=== PATIENT | male | born 1940 | race Caucasian/White ===

== ENCOUNTER 2020-07-27 05:10 | Inpatient (IN) ==
--- NOTE | 2020-07-02 15:05 | PAT Medication Instructions ---
Medication Instructions Date of Service July 02, 2020 Home Medications acetaminophen [Tylenol Extra Strength] 1,000 mg PO Q6H PRN allopurinol 300 mg PO QAM amlodipine 5 mg PO QAM aspirin [Aspir-81] 81 mg PO QAM atorvastatin 40 mg PO QAM irbesartan-hydrochlorothiazide 1 tab PO QAM levothyroxine 150 mcg PO QAM meloxicam 15 mg PO QAM metoprolol tartrate 25 mg PO QAM ASK your surgeon for instructions meloxicam 15 mg PO QAM DO NOT take the morning of surgery irbesartan-hydrochlorothiazide 1 tab PO QAM Take morning of surgery With a small sip of water, OTHERWISE NOTHING TO EAT OR DRINK AFTER MIDNIGHT: acetaminophen [Tylenol Extra Strength] 1,000 mg PO Q6H PRN (okay to take up to 4 hours prior to surgery if needed) allopurinol 300 mg PO QAM amlodipine 5 mg PO QAM aspirin [Aspir-81] 81 mg PO QAM atorvastatin 40 mg PO QAM levothyroxine 150 mcg PO QAM metoprolol tartrate 25 mg PO QAM Take evening before surgery acetaminophen [Tylenol Extra Strength] 1,000 mg PO Q6H PRN (if needed) Other Notes If you have any questions please call us at [phone] or [phone] or [phone] or [phone]
--- NOTE | 2020-07-06 12:55 | Anesthesiology Consultation ---
Date of Service July 06, 2020 Assessment & Plan (1) Encounter for pre-operative examination: COVID Status: As of 07/06 assessment, patient denies travel to endemic area, known exposure/sick contacts, or symptoms of COVID19. Patient instructed that they and their household members must follow strict social distancing guidelines, wear a mask in public and avoid travel for 14 days prior to surgery. Patient is traveling to [place] this weekend to see his son and new grandchild, will be returning 07/12. As [place] is not on the list of quarantine states, and he will be returning back to the area > 5 days prior to COVID test, OK to proceed as planned. Patient advised to check the [facility] website to see if [place] was added to the list prior to leaving. Preoperative COVID19 testing to be completed prior to surgery per surgeon's arrangements. Patient made aware to self-isolate as much as possible between COVID testing and surgery. Chart Review Chart Review: Acceptable Risk for Surgery (pending surgeon-ordered pcp and cardio clearances) and Patient seen in Pre Admission Testing Teaching & Discussion Instructed NPO after midnight before surgery, except medications with 15 cc of water. Medication instructions provided according to the PAT guidelines. History Surgery Operation Date: 07/27/20 10:30 Proposed Procedures p Left Total Hip Arthroplasty Anterior - Frantz Gunter DO Height/Weight Height: 5 ft 3.5 in Weight: 94.347 kg Allergies Allergy/AdvReac Type Severity Reaction Status Date / Time rosuvastatin Allergy Mild MUSCLE Verified 07/01/20 09:53 ACHES simvastatin AdvReac Mild MUSCLE Verified 07/01/20 09:53 ACHES Medications Home Medications Medication Instructions Recorded Confirmed Last Taken acetaminophen [Tylenol Extra 1,000 mg PO Q6H PRN 07/01/20 07/01/20 Unknown Strength] allopurinol 300 mg PO QAM 07/01/20 07/01/20 Unknown amlodipine 5 mg PO QAM 07/01/20 07/01/20 Unknown aspirin [Aspir-81] 81 mg PO QAM 07/01/20 07/01/20 Unknown atorvastatin 40 mg PO QAM 07/01/20 07/01/20 Unknown irbesartan-hydrochlorothiazide 1 tab PO QAM 07/01/20 07/01/20 Unknown levothyroxine 150 mcg PO QAM 07/01/20 07/01/20 Unknown meloxicam 15 mg PO QAM 07/01/20 07/01/20 Unknown metoprolol tartrate 25 mg PO QAM 07/01/20 07/01/20 Unknown Past Medical History Medical History Afib Post-op after CABG. CAD (coronary artery disease) S/P CABG x 1 SHANKAR-LAD 04/02/17. PCI to distal RCA with NARCISO 05/10/17. Cancer COLON, S/P HEMICOLECTOMY. Chronic back pain LUMBAR Enlarged prostate GERD (gastroesophageal reflux disease) UNDER CONTROL NOW Hyperlipidemia Hypertension Hypothyroidism JULIANNA (obstructive sleep apnea) Per cardiology 01/2020, sleep study in november 2017 showed sleep apnea, recommended CPAP, but patient never followed up. Osteoarthritis Exercise / Class Metabolic Activity II 4-5 Yardwork/Stairs/Walk up hill (Denies CP or SOB with 1 FOS, still golfs 18 holes (riding in cart)) Past Family History Family History (Updated 07/01/20 @ 10:07 by Rozina Whitaker RN) Mother Family history of diabetes mellitus Past Surgical History Surgical History Fusion of spine X 2-LUMBAR AREA History of bowel resection REMOVAL 80% COLON AND CHEMO-2002 History of [facility] cataract surgery R/L History of colonoscopy MULTIPLE History of coronary artery bypass graft 1 VESSEL-3-4 YRS AGO-[facility] History of esophagogastroduodenoscopy (EGD) History of open reduction and internal fixation (ORIF) procedure FINGER RIGHT HAND History of total knee replacement LEFT Past Anesthesia History No Hx of Anesthesia Complications and No Family Hx of Anesthesia Complications History of PONV No Hx of PONV and No Hx of Motion Sickness Social History Smoking Status: Never smoker Do You Dip or Chew Tobacco: No (QUIT) Hx Alcohol Use: No Hx Substance Use: No substance use type: other Substance Use Type Other:: CBD OIL DROPLETS SUBLINGUALLY-1 X A DAY Review of Systems Pt denies any recent chest pain, shortness of breath, palpitations, cough, fever, URI, or uncontrolled acid reflux. Physical Exam Vital Signs BP: 152/76 P: 87bpm SPO2: 96% RA T: 97.6 F R: 16 ENMT Mouth: + dentures and + chipped teeth (on bottom few remaining teeth are broken off at root); no loose teeth Thyromental Distance: > or= 3.5 Finger Breadths Mallampati Class: I Neck normal visual inspection; neck extension not limited Respiratory normal respiratory effort Auscultation: lungs clear to auscultation bilaterally Cardiovascular Rate/Rhythm: regular rate and regular rhythm Heart Sounds: no murmur Vessels: no carotid bruit Extremities: no edema Testing Laboratory Results 07/06/20 13:25 07/06/20 13:25 PT 11.5 Seconds (9.0-12.0) 07/06/20 13:25 INR 1.1 (0.9-1.1) 07/06/20 13:25 APTT 31.2 Seconds (21.0-31.0) H 07/06/20 13:25 Hemoglobin A1c 6.2 % (4.5-5.6) H 07/06/20 13:25 Urine Color Dark Yellow 07/06/20 13:25 Urine Appearance Clear (Clear) 07/06/20 13:25 Urine pH 5.0 (4.5-7.5) 07/06/20 13:25 Ur Specific [place] 1.027 (1.000-1.030) 07/06/20 13:25 Urine Protein Negative (Negative) 07/06/20 13:25 Urine Glucose (UA) Negative (Negative) 07/06/20 13:25 Urine Ketones Trace (Negative) H 07/06/20 13:25 Urine Nitrite Negative (Negative) 07/06/20 13:25 Ur Leukocyte Esterase 1+ (Negative) H 07/06/20 13:25 Urine WBC (Auto) >30 /hpf (0-5) H 07/06/20 13:25 Urine RBC (Auto) 0-4 /hpf (0-4) 07/06/20 13:25 U Hyaline Cast (Auto) 1-5 /lpf (0-5) 07/06/20 13:25 U Epithel Cells (Auto) 20-30 /lpf (0-5) H 07/06/20 13:25 Urine Bacteria (Auto) Negative (Negative) 07/06/20 13:25 Blood Type O Positive 07/06/20 13:25 Antibody Screen NEGATIVE 07/06/20 13:25 Creatinine elevated, unknown if baseline or PARAM. Pt will be seeing PCP for clearance, will forward labs for their review. Electrocardiogram Date: 01/20/20 Findings: + SB @ (59bpm) Chest X-Ray Date: 07/06/20 Findings: + NAD Echocardiogram Date: 02/03/20 EF: 60% Grade 1 diastolic dysfunction. Mild concentric hypertrophy. Normal right ventricular size and function. Moderately dilated left atrium. Normal right atrium. Mild aortic regurgitation with trileaflet aortic valve. Mild mitral regurgitation. Normal PA pressure. Physiologic pulmonic regurgitation. The ascending aorta is enlarged. Stress Test Date: 02/03/20 Mild motion artifact. Increased liver uptake. Good quality study. Gated MPI wall motion suggest mild inferior hypokinesis with normal EF. There is a medium sized, mild intensity, fixed MPI defect of the inferior, inferoapical and inferolateral myocardium. This suggests infarct without significant ischemia. Moderately abnormal, low risk study. Findings similar to prior study dated 02/09/2017. Cardiac Catheterization Date: 05/10/17 Widely patent SHANKAR to the LAD. Successful PCI and stenting in the distal RCA with a 2.5 x 22 mm drug-eluting stent postdilated with a 2.75x15 noncompliant balloon.
--- NOTE | 2020-07-06 13:52 | XRay Report ---
XR chest Pre-admission PA/Lat CLINICAL HISTORY: Chest radiograph August 26, 2014. COMPARISON STUDY: No previous studies for comparison. FINDINGS: Lung volumes are normal. Lungs are clear. There is no pneumothorax or pleural effusion. Mil d cardiomegaly is unchanged. Mediastinal contours are normal. There is no evidence for pulmonary raul a. Spine fusion hardware is partially imaged. There is severe osteoarthritis of both glenohumeral [place] nts. IMPRESSION: No acute cardiopulmonary findings. ACT 112: Negative or not required by law. Electronically signed by: Aleksey Feldman M.D. 07/06/2020 1:50 PM
[2020-07-06 13:53] LABS: Basophils # (auto) 0.03 K/uL (0-0.2); Basophils % (auto) 0.4 %; Eosinophils # (auto) 0.09 K/uL (0-0.5); Eosinophils % (auto) 1.1 %; Hematocrit (blood only) 40.4 % (42-52); Hemoglobin 13.8 g/dL (14.0-18.0); Immature Granulocytes # (auto) 0.01 K/uL (0.00-0.02); Immature Granulocytes % (auto) 0.1 %; Mean Corpuscular Hemoglobin 29.1 pg (25-34); Mean Corpuscular Hgb Conc 34.2 g/dL (32-36); Mean Corpuscular Volume 85.2 fL (80-100); Monocytes # (auto) 0.71 K/uL (0.11-0.59); Monocytes % (auto) 8.9 %; Neutrophils # (auto) 5.94 K/uL (1.4-6.5); Neutrophils % (auto) 74.5 %; Platelet Count 200 K/uL (130-400); RDW Coefficient of Variation 14.2 % (11.5-14.5); RDW Standard Deviation 43.9 fL (36.4-46.3); Red Blood Count 4.74 M/uL (4.7-6.1); White Blood Count 7.98 K/uL (4.8-10.8)
[2020-07-06 14:03] LABS: Estimated Average Glucose 131 mg/dl; Hemoglobin A1C 6.2 % (4.5-5.6)
[2020-07-06 14:13] LABS: Albumin Level 3.8 gm/dl (3.4-5.0); BUN Creatinine Ratio 14.2 (10-20); Calcium 9.4 mg/dl (8.5-10.1); Creatinine Clr Calc Pharmacy 37.3 ml/min; Est GFR (African American) 45.8; Est GFR (Non-African American) 39.5; Potassium 4.1 mmol/L (3.5-5.1)
[2020-07-06 14:15] LABS: INR 1.1 (0.9-1.1); Partial Thromboplastin Ratio 1.1; Partial Thromboplastin Time 31.2 Seconds (21.0-31.0); Prothrombin Time 11.5 Seconds (9.0-12.0)
[2020-07-06 14:30] LABS: Appearance Urine Clear (Clear); Bacteria Urine Automated Negative (Negative); Bilirubin Urine Negative (Negative); Blood Urine Negative (Negative); Color Urine Dark Yellow; Epithelial Cell Urine Auto 20-30 /lpf (0-5); Glucose Urine UA Negative (Negative); Ketones Urine Trace (Negative); Leukocyte Esterase Urine 1+ (Negative); Nitrite Urine Negative (Negative); Protein Urine Negative (Negative); RBC Urine Automated 0-4 /hpf (0-4); Specific Gravity Urine 1.027 (1.000-1.030); Urobilinogen Urine Negative (Negative); WBC Urine Automated >30 /hpf (0-5)
--- NOTE | 2020-07-24 10:19 | History & Physical Report ---
Date of Service July 27, 2020 Assessment & Plan (1) Degenerative joint disease of left hip: I have indicated the patient for left anterior total hip replacement. The risks, benefits and complications of surgery were explained to the patient which include but not limited to infection, acute blood loss, DVT/PE, injury to nerves, vessels, bone, soft tissue, arthrofibrosis, chronic pain, failure of the prosthesis, hip dislocation, leg length discrepancy, need for additional surgery, cardiac and pulmonary events and . The patient wished to proceed with surgery and informed consent was obtained at this time. We will plan for 81mg ASA BID post-operatively for DVT prophylaxis. Upon discharge the patient will be discharged home with home health services. Appropriate clearances by PCP and cardiology were obtained. Patient is asymptomatic for UTI, PCP felt this contaminant. History of Present Illness Chief Complaint: Left hip pain/DJD Primary Care Provider: Jignesh Arevalo MD The patient is a 80 year old male who presents with complaints of severe left hip pain and DJD. The patient has failed outpatient conservative treatments to this point which included NSAIDs, IA corticosteroid injection, home exercise/walking program. The patient's pain and limited function have progressed to the point where they severely hinder their activities of daily living and they no longer tolerate exercise programs. They are requesting to proceed with total hip replacement surgery. Allergies Allergy/AdvReac Type Severity Reaction Status Date / Time rosuvastatin Allergy Mild MUSCLE Verified 07/27/20 05:44 ACHES simvastatin AdvReac Mild MUSCLE Verified 07/27/20 05:44 ACHES Home Medications Home Medications Medication Instructions Recorded Confirmed Type acetaminophen [Tylenol Extra 1,000 mg PO Q6H PRN 07/01/20 07/27/20 History Strength] allopurinol 300 mg PO QAM 07/01/20 07/27/20 History amlodipine 5 mg PO QAM 07/01/20 07/27/20 History aspirin [Aspir-81] 81 mg PO QAM 07/01/20 07/27/20 History atorvastatin 40 mg PO QAM 07/01/20 07/27/20 History irbesartan-hydrochlorothiazide 1 tab PO QAM 07/01/20 07/27/20 History levothyroxine 150 mcg PO QAM 07/01/20 07/27/20 History meloxicam 15 mg PO QAM 07/01/20 07/27/20 History metoprolol tartrate 25 mg PO QAM 07/01/20 07/27/20 History oxycodone-acetaminophen [Percocet] 1 tab PO Q6H PRN 07/27/20 07/27/20 History Past Med/Surg History Medical History Afib Post-op after CABG. CAD (coronary artery disease) S/P CABG x 1 SHANKAR-LAD 04/02/17. PCI to distal RCA with NARCISO 05/10/17. Cancer COLON, S/P HEMICOLECTOMY. Chronic back pain LUMBAR Enlarged prostate GERD (gastroesophageal reflux disease) UNDER CONTROL NOW Hyperlipidemia Hypertension Hypothyroidism JULIANNA (obstructive sleep apnea) Per cardiology 01/2020, sleep study in november 2017 showed sleep apnea, recommended CPAP, but patient never followed up. Osteoarthritis Surgical History Fusion of spine X 2-LUMBAR AREA History of bowel resection REMOVAL 80% COLON AND CHEMO-2002 History of cardiac cath 1 STENT 3-4 YRS AGO-[facility] History of cataract surgery R/L History of colonoscopy MULTIPLE History of coronary artery bypass graft 1 VESSEL-3-4 YRS AGO-[facility] History of esophagogastroduodenoscopy (EGD) History of open reduction and internal fixation (ORIF) procedure FINGER RIGHT HAND History of total knee replacement LEFT Family History Mother Family history of diabetes mellitus Social History Smoking Status: Never smoker Second Hand Exposure: Yes (IN HIS 20-30'S); Do You Dip or Chew Tobacco: No (QUIT); Hx Alcohol Use: No Hx Substance Use: No Preferred Language: Kosovan Communication Ability: Effective Turntable Man Required: No Beliefs That Will Affect Care: None Current Living Situation: Spouse Other Information That Helps Us Care for You: No Feels Safe at Home: Yes Safety Concerns: Feels Safe At This Time Assistive Devices: Denture - Upper Review of Systems Review of Systems: All systems reviewed & are unremarkable except as noted in HPI & below Constitutional: as per Subjective / HPI Physical Exam Physical Exam: LLE NVSI +EHL/FHL/TA/GS SILT grossly, +2 DP pulse, compartments soft NT, limited painful ROM of the hip, antalgic gait. Constitutional: WD/WN, vitals as above Eyes: PERRL, conjunctivae normal, anicteric sclerae ENMT: external ear and nose normal, oropharynx normal Neck: trachea midline, no thyromegaly Respiratory: normal respiratory effort, lungs clear to auscultation Cardiovascular: RRR, no murmur, no edema Gastrointestinal (Abdomen): normal bowel sounds, soft, nontender, no hepatosplenomegaly Musculoskeletal: no cyanosis or clubbing, extremities motor strength 5/5 Skin: no rashes, warm and dry Neurologic: patellar DTR's 2+ bilat, sensation intact Psychiatric: A+Ox3, euthymic affect Lymphatic: no cervical or axillary lymphadenopathy Results & Data Results & Data ([facility]) Diagnostic Findings Multiple views of the hip demonstrates severe DJD with complete loss of the joint space. +osteophytes, +sclerosis, +subchondral cysts. Pre Admission Testing Addendum Laboratory Results 07/06/20 13:25 07/06/20 13:25 PT 11.5 Seconds (9.0-12.0) 07/06/20 13:25 INR 1.1 (0.9-1.1) 07/06/20 13:25 APTT 31.2 Seconds (21.0-31.0) H 07/06/20 13:25 Hemoglobin A1c 6.2 % (4.5-5.6) H 07/06/20 13:25 Urine Color Dark Yellow 07/06/20 13:25 Urine Appearance Clear (Clear) 07/06/20 13:25 Urine pH 5.0 (4.5-7.5) 07/06/20 13:25 Ur Specific [place] 1.027 (1.000-1.030) 07/06/20 13:25 Urine Protein Negative (Negative) 07/06/20 13:25 Urine Glucose (UA) Negative (Negative) 07/06/20 13:25 Urine Ketones Trace (Negative) H 07/06/20 13:25 Urine Nitrite Negative (Negative) 07/06/20 13:25 Ur Leukocyte Esterase 1+ (Negative) H 07/06/20 13:25 Urine WBC (Auto) >30 /hpf (0-5) H 10/20/20 13:25 Urine RBC (Auto) 0-4 /hpf (0-4) 07/06/20 13:25 U Hyaline Cast (Auto) 1-5 /lpf (0-5) 07/06/20 13:25 U Epithel Cells (Auto) 20-30 /lpf (0-5) H 07/06/20 13:25 Urine Bacteria (Auto) Negative (Negative) 07/06/20 13:25 Blood Type O Positive 07/06/20 13:25 Antibody Screen NEGATIVE 07/06/20 13:25 07/06/20 13:25 Urine Culture - Final Urine,Clean Catch Escherichia coli Angelica albicans/dubliniensis
[2020-07-27] MEDS ORDERED: CeleBREX 200 MG CAP ONE (05:22)
[2020-07-27] MEDS ORDERED: TRANEXAMIC ACID 1,000 MG **IV Pre-op IV SCH (06:00)
[2020-07-27] MEDS ORDERED: GABAPENTIN 300 MG CAP PO SCH (06:00)
[2020-07-27] MEDS ORDERED: ROPIVACAINE 0.5% HCL/PF 150 MG, BUPIVACAINE 0.5% MPF 30 ML, EPINEPHrine 30MG/30ML (OR U... INFIL SCH (06:00)
[2020-07-27] MEDS ORDERED: TRANEXAMIC ACID 1,000 MG **IV Intra-op IV SCH (06:00)
[2020-07-27] MEDS ORDERED: CeleBREX 200 MG CAP PO SCH (06:00)
[2020-07-27] MEDS ORDERED: dexAMETHasone 4 MG TAB PO SCH (06:00)
[2020-07-27] MEDS ORDERED: ceFAZolin 2000MG 2,000 MG/15 ML SYR IV SCH (06:00)
[2020-07-27] MEDS ORDERED: LR 500ML BOLUS, THEN 15ML/HR IV SCH (06:00)
[2020-07-27] MEDS ORDERED: FAMOTIDINE 20 MG TAB PO SCH (06:00)
[2020-07-27] MEDS ORDERED: ACETAMINOPHEN 500 MG TAB PO SCH (06:00)
[2020-07-27] MEDS ORDERED: METOCLOPRAMIDE HCL 10 MG TABLET PO SCH (06:00)
[2020-07-27] MEDS ORDERED: BUPIVACAINE 0.5 % 5 MG/1 ML PF 10ML VIAL ONE (06:17)
--- NOTE | 2020-07-27 06:56 | History & Physical Bridge Note ---
Date of Service July 27, 2020 History & Physical Bridge Note I have examined the patient, reviewed the History & Physical and in the interval since the performance of the History & Physical I have noted the following changes of clinical significance: no changes noted
[2020-07-27] MEDS ORDERED: ePHEDrine sulfate 50 MG/ML AMP IV PRN ×2 (06:57→07:20)
[2020-07-27] MEDS ORDERED: ATROPINE SULFATE 0.1 MG/ML 10ML SYR IV PRN ×2 (06:57→07:20)
[2020-07-27] MEDS ORDERED: ONDANSETRON INJ 2 MG/ML 2 ML VIAL IV PRN ×3 (06:57→10:22)
[2020-07-27] MEDS ORDERED: fentaNYL citrate 100 MCG/2 ML VIAL IV PRN ×2 (06:57→07:20)
[2020-07-27] MEDS ORDERED: PROPOFOL IV EMULSION 10 MG/ML 20 ML VIAL IV ONE ×2 (06:59→11:11)
[2020-07-27] MEDS ORDERED: fentaNYL citrate 100 MCG/2 ML VIAL ONE (06:59)
[2020-07-27] MEDS ORDERED: MIDAZOLAM HCL 1 MG/ML 2ML VIAL ONE (07:01)
[2020-07-27] MEDS ORDERED: BACITRACIN INJ 50,000 UNIT VIAL ONE (07:04)
[2020-07-27] MEDS ORDERED: ORTHO JOINT ANESTHETIC ONE (07:04)
--- NOTE | 2020-07-27 08:42 | Anesthesiology Consultation ---
Date of Service July 27, 2020 Assessment & Plan (1) Encounter for pre-operative examination: Chart Review Chart Review: Acceptable Risk for Surgery and Patient NOT seen in Pre Admission Testing Consults Requested none ASA ASA3 Proposed Anesthesia Anesthesia Type: MAC Spinal Risk / Benefits Reviewed With: PT / POA / Parent / Guardian, Accepts Plan and Informed Consent Obtained History Surgery Operation Date: 07/27/20 07:15 Proposed Procedures p Left Total Hip Arthroplasty Anterior - Frantz Gunter DO Height/Weight Height: 5 ft 3.5 in Weight: 94.2 kg Allergies Allergy/AdvReac Type Severity Reaction Status Date / Time rosuvastatin Allergy Mild MUSCLE Verified 07/27/20 05:44 ACHES simvastatin AdvReac Mild MUSCLE Verified 07/27/20 05:44 ACHES Medications Home Medications Medication Instructions Recorded Confirmed Last Taken acetaminophen [Tylenol Extra 1,000 mg PO Q6H PRN 07/01/20 07/27/20 Unknown Strength] allopurinol 300 mg PO QAM 07/01/20 07/27/20 07/26/20 09:00 amlodipine 5 mg PO QAM 07/01/20 07/27/20 07/27/20 03:45 aspirin [Aspir-81] 81 mg PO QAM 07/01/20 07/27/20 07/20/20 atorvastatin 40 mg PO QAM 07/01/20 07/27/20 07/26/20 09:00 irbesartan-hydrochlorothiazide 1 tab PO QAM 07/01/20 07/27/20 07/27/20 03:45 levothyroxine 150 mcg PO QAM 07/01/20 07/27/20 07/27/20 03:45 meloxicam 15 mg PO QAM 07/01/20 07/27/20 07/20/20 metoprolol tartrate 25 mg PO QAM 07/01/20 07/27/20 07/27/20 03:45 oxycodone-acetaminophen [Percocet] 1 tab PO Q6H PRN 07/27/20 07/27/20 07/26/20 21:00 Active Medications Generic Name Dose Route Start Last Admin Trade Name Freq PRN Reason Stop Dose Admin Acetaminophen 1,000 mg 07/27/20 06:00 07/27/20 06:18 Acetaminophen 500 Mg Tab PO 11/10/20 18:00 1,000 mg PREOP SANA Administration Dexamethasone 8 mg 07/27/20 06:00 07/27/20 06:19 Dexamethasone 4 Mg Tab PO 07/27/20 18:00 8 mg PREOP SANA Administration Famotidine 20 mg 07/27/20 06:00 07/27/20 06:18 Famotidine 20 Mg Tab PO 07/27/20 18:00 20 mg PREOP SANA Administration Gabapentin 300 mg 07/27/20 06:00 07/27/20 06:19 Gabapentin 300 Mg Cap PO 07/27/20 18:00 300 mg PREOP SANA Administration Lactated Ringer's 1,000 mls @ 15 mls/hr 07/27/20 06:00 07/27/20 07:24 Lr IV 07/27/20 18:00 Infused .Q24H SANA Infusion Cefazolin Sodium 2,000 mg in 15 mls @ 3.75 mls/min 07/27/20 06:00 07/27/20 07:24 Ancef 2000mg IV 07/27/20 18:00 3.75 mls/min PREOP SANA Administration Protocol Tranexamic Acid 1,000 mg in 100 mls @ 600 mls/hr 07/27/20 06:00 07/27/20 07:24 Tranexamic Acid / 0.7% Nacl IV 07/27/20 18:00 Infused TODAY@0600 SANA Infusion Metoclopramide HCl 10 mg 07/27/20 06:00 07/27/20 06:18 Metoclopramide Hcl 10 Mg Tablet PO 07/27/20 18:00 10 mg PREOP SANA Administration NPO Date Last Intake of Fluids: 07/26/20 Time Last Intake of Fluids: 21:00 Last Intake of Fluids Comment: sips of water this AM with meds Date Last Intake of Solids: 07/26/20 Time Last Intake of Solids: 18:00 Past Medical History Medical History Afib Post-op after CABG. CAD (coronary artery disease) S/P CABG x 1 SHANKAR-LAD 04/02/17. PCI to distal RCA with NARCISO 05/10/17. Cancer COLON, S/P HEMICOLECTOMY. Chronic back pain LUMBAR Enlarged prostate GERD (gastroesophageal reflux disease) UNDER CONTROL NOW Hyperlipidemia Hypertension Hypothyroidism JULIANNA (obstructive sleep apnea) Per cardiology 01/2020, sleep study in november 2017 showed sleep apnea, recommended CPAP, but patient never followed up. Osteoarthritis Exercise / Class Metabolic Activity II 4-5 Yardwork/Stairs/Walk up hill Past Family History Family History Mother Family history of diabetes mellitus Past Surgical History Surgical History Fusion of spine X 2-LUMBAR AREA History of bowel resection REMOVAL 80% COLON AND CHEMO-2002 History of cardiac cath 1 STENT 3-4 YRS AGO-[employer] [place] History of cataract surgery R/L History of colonoscopy MULTIPLE History of coronary artery bypass graft 1 VESSEL-3-4 YRS AGO-[facility] History of esophagogastroduodenoscopy (EGD) History of open reduction and internal fixation (ORIF) procedure FINGER RIGHT HAND History of total knee replacement LEFT Past Anesthesia History No Hx of Anesthesia Complications and No Family Hx of Anesthesia Complications History of PONV No Hx of PONV and No Hx of Motion Sickness Social History Smoking Status: Never smoker Do You Dip or Chew Tobacco: No (QUIT) Hx Alcohol Use: No Hx Substance Use: No substance use type: other Substance Use Type Other:: CBD OIL DROPLETS SUBLINGUALLY-1 X A DAY Physical Exam Vital Signs Last Vital Signs Temp 36.7 C 07/27/20 06:41 Pulse 65 07/27/20 06:41 Resp 20 07/27/20 06:41 BP 140/68 07/27/20 06:41 Pulse Ox 93 07/27/20 06:41 ENMT Mouth: no dentition abnormality Thyromental Distance: > or= 3.5 Finger Breadths Mallampati Class: II Neck normal visual inspection Respiratory normal respiratory effort Auscultation: lungs clear to auscultation bilaterally Cardiovascular Rate/Rhythm: regular rate and regular rhythm Musculoskeletal Spine: + scoliosis (large surgical thoracolumbar surgical scar) Neurologic moves all extremities (no focal neurologic deficits) Psychiatric Orientation: alert Testing Laboratory Results 07/06/20 13:25 07/06/20 13:25 PT 11.5 Seconds (9.0-12.0) 07/06/20 13:25 INR 1.1 (0.9-1.1) 07/06/20 13:25 APTT 31.2 Seconds (21.0-31.0) H 07/06/20 13:25 Hemoglobin A1c 6.2 % (4.5-5.6) H 07/06/20 13:25 Urine Color Dark Yellow 07/06/20 13:25 Urine Appearance Clear (Clear) 07/06/20 13:25 Urine pH 5.0 (4.5-7.5) 07/06/20 13:25 Ur Specific [place] 1.027 (1.000-1.030) 07/06/20 13:25 Urine Protein Negative (Negative) 07/06/20 13:25 Urine Glucose (UA) Negative (Negative) 07/06/20 13:25 Urine Ketones Trace (Negative) H 07/06/20 13:25 Urine Nitrite Negative (Negative) 07/06/20 13:25 Ur Leukocyte Esterase 1+ (Negative) H 07/06/20 13:25 Urine WBC (Auto) >30 /hpf (0-5) H 07/06/20 13:25 Urine RBC (Auto) 0-4 /hpf (0-4) 07/06/20 13:25 U Hyaline Cast (Auto) 1-5 /lpf (0-5) 07/06/20 13:25 U Epithel Cells (Auto) 20-30 /lpf (0-5) H 07/06/20 13:25 Urine Bacteria (Auto) Negative (Negative) 07/06/20 13:25 Blood Type O Positive 07/06/20 13:25 Antibody Screen NEGATIVE 07/06/20 13:25 07/06/20 13:25 Urine Culture - Final Urine,Clean Catch Escherichia coli Angelica albicans/dubliniensis Electrocardiogram Date: 01/20/20 Findings: + SB @ (59bpm) Chest X-Ray Date: 07/06/20 Findings: + NAD Echocardiogram Date: 02/03/20 EF: 60% Grade 1 diastolic dysfunction. Mild concentric hypertrophy. Normal right ventricular size and function. Moderately dilated left atrium. Normal right atrium. Mild aortic regurgitation with trileaflet aortic valve. Mild mitral regurgitation. Normal PA pressure. Physiologic pulmonic regurgitation. The ascending aorta is enlarged. Stress Test Date: 02/03/20 Mild motion artifact. Increased liver uptake. Good quality study. Gated MPI wall motion suggest mild inferior hypokinesis with normal EF. There is a medium sized, mild intensity, fixed MPI defect of the inferior, inferoapical and inferolateral myocardium. This suggests infarct without significant ischemia. Moderately abnormal, low risk study. Findings similar to prior study dated 02/09/2017. Cardiac Catheterization Date: 05/10/17 Widely patent SHANKAR to the LAD. Successful PCI and stenting in the distal RCA with a 2.5 x 22 mm drug-eluting stent postdilated with a 2.75x15 noncompliant balloon.
--- NOTE | 2020-07-27 09:22 | Post Operative Brief Note ---
Immediate Post Op Note v1 Date of Surgery July 27, 2020 Pre & Post Diagnosis Operation Date: 07/27/20 07:15 Pre-Op Diagnosis: Osteoarthritis, Left Hip Post-Op Diagnosis: Osteoarthritis, Left Hip I identified the patient and participated in the time-out.: Yes Procedure Operation Date: 07/27/20 07:15 Actual Procedures p Left Total Hip Arthroplasty Anterior, Uncemented(Left) - Frantz Gunter DO Surgeon Frantz Gunter DO Debt Counselor Deejay Chaudhry Estimated Blood Loss 185 Findings Consistent with Post-Op Diagnosis Fluids 1500 cc LR Specimens femoral head Anesthesia Type Spinal MAC Complications none Disposition Disposition: Recovery Room Overlapping Procedure I was present for: the critical portions of procedure. I was immediately available: during the entire case. Back up surgeon: was not required during procedure.
--- NOTE | 2020-07-27 09:24 | Operative Report ---
Post Operative Report Pre & Post Diagnosis Operation Date: 07/27/20 07:15 Pre-Op Diagnosis: Osteoarthritis, Left Hip Post-Op Diagnosis: Osteoarthritis, Left Hip I identified the patient and participated in the time-out.: Yes Procedure Operation Date: 07/27/20 07:15 Actual Procedures p Left Total Hip Arthroplasty Anterior, Uncemented(Left) - Frantz Gunter DO Surgeon Frantz Gunter DO Clinical Trial Head Deejay Chaudhry Estimated Blood Loss 185 Findings Consistent with Post-Op Diagnosis Fluids 1500 cc LR Specimens Femoral head Anesthesia Type Spinal MAC Complications none Disposition Disposition: Recovery Room Indications The patient is a 80-year-old male who presents with severe progressive left hip DJD/AVN who has failed outpatient conservative treatments. I indicated the patient for a anterior total hip replacement and the risks and benefits were explained in detail which include but not limited to infection, bleeding, blood clot, damage to surrounding bone, nerves, vessels, soft tissue, hip dislocation, failure of the prosthesis, leg length discrepancy, need for additional surgery and . The patient agreed to proceed with replacement of the hip and informed consent was obtained. Appropriate clearances were obtained. Description of Procedure COMPONENTS USED: [employer] hip system: Acetabulum size 54, femur size 8 high offset, femoral head 36-3, liner 54x36, acetabular screw 25 mm x 1. DESCRIPTION OF PROCEDURE: Following satisfactory spinal anesthesia, the patient was placed supine on the OR table. The right leg was placed in the well leg gonzáles and the left leg in the traction device. The left leg was prepared with ChloraPrep and draped sterilely. A surgical timeout was performed, patient identified and site laura verified. Appropriate antibiotics were given. A standard anterior approach in the interval between the sartorius and tensor muscles was performed. Dissection was carried down through subcutaneous tissues. Electrocautery was utilized for hemostasis. Circumflex femoral vessels were identified, tied and ligated. The anterior capsular fat pad was removed and the capsulotomy was performed revealing the arthritic femoral neck and head. A femoral neck cut was made with reciprocating saw and the bone fragments removed. The acetabular self-retraining retractor was placed. Acetabular reaming was completed under fluoroscopic guidance, a 54 shell was impacted into an anatomic position and secured with a dome screw. Local anesthetic was placed and following irrigation, the polyethylene liner was placed. The femur was placed into position of external rotation, extension and adduction. Femoral canal was prepared up to the size 8 high offset. Trial r eduction with a 36-3 neck length head showed good soft tissue tension, leg lengths restored, and good fit and fill of the proximal canal using fluoroscopic landmarks. The hip was dislocated. The trial component was removed. The final implant was placed. The hip was irrigated with sterile saline solution and reduced. A Betadine soak was performed. After 3 minutes, the hip was once more irrigated with copious sterile saline solution with bacitracin. Marta-incisional soft tissue was injected utilizing [place] [employer] which includes a combination of Ropivicaine 0.5% 150mg, Bupivicaine 0.5%/Epinephrine 1:200,000 30ml, Toradol 30mg, Dexamethasone 4mg, Ketamine 10mg, Clonidine 100mcg and NSS 30ml solution. The capsule was then closed with 1-0 Vicryl interrupted figure of eight sutures. The fascia was closed with a running suture of #1 Vicryl, the subcutaneous tissues with 2-0 Vicryl and the skin with a running subcuticular stitch of 3-0 V-Loc. Dermabond prineo and a dry dressing were applied. The patient tolerated the procedure well and was transported to PACU in stable condition. Due to the complex nature of the procedure, the entire surgery was performed with the operational assistance of Deejay chaudhry PA-C. The department assistant, under direct supervision, was involved in the actual performance of all aspects of the surgical procedure including patient positioning, hemostasis, tissue retraction, instrument management and wound closure. I attest to the content of the Intraoperative Record and any orders documented therein. Any exceptions are noted below.
--- NOTE | 2020-07-27 10:15 | XRay Report ---
XR hip 1V LT w pelvis HISTORY: 80 years-old Male IN PACU - A/P PELVIS and LATERAL HIP left hip total joint arthroplasty COMPARISON: Fluoroscopic images of the left hip of same day TECHNIQUE: AP view the pelvis with crosstable lateral view of the left hip FINDINGS: Moderate to severe right hip osteoarthritis. Left hip total joint arthroplasty demonstrates satisfact ory alignment. No acute fracture or retained foreign body. Expected postsurgical soft tissue swelling and deep tissue air lateral to the left hip. Posterior interbody roverto and screw fusion hardware of th e lumbosacral junction. IMPRESSION: Left hip total joint arthroplasty with expected postoperative changes. ACT 112: Negative or not required by law. The above report was generated using voice recognition software. It may contain grammatical, syntax o r spelling errors. Electronically signed by: Gianfranco Robles M.D. 07/27/2020 10:14 AM
[2020-07-27] MEDS ORDERED: diphenhydrAMINE Capsule 25 MG CAP PO PRN (10:22)
[2020-07-27] MEDS ORDERED: METOCLOPRAMIDE HCL INJ 5 MG/ML 2 ML VIAL IV PRN (10:22)
[2020-07-27] MEDS ORDERED: NALOXONE HCL 0.4 MG/1 ML VIAL/CARP IV PRN (10:22)
[2020-07-27] MEDS ORDERED: HYDROmorphone INJ 0.5 MG/0.5 ML SYR IV PRN (10:22)
[2020-07-27] MEDS ORDERED: oxyCODONE HCL IR 5 MG TAB (IMMEDIATE RELEASE) PO PRN (10:22)
[2020-07-27] MEDS ORDERED: bisacodyL 10 MG SUPP PR PRN (10:22)
[2020-07-27] MEDS ORDERED: MAGNESIUM HYDROXIDE SUSP 30 ML UDC PO PRN (10:22)
[2020-07-27] MEDS: SODIUM CHLORIDE 0.9% 1000ML 1,000 ML IV SCH ×2 (10:39→21:46)
--- NOTE | 2020-07-27 10:41 | Fluoroscopy Report ---
FL hip LT 1V HISTORY: 80 years-old Male LEFT ANTERIOR HIP left hip total joint arthroplasty COMPARISON: Pelvis and left hip radiographs of same day TECHNIQUE: 2 spot fluoroscopic images of the left hip were obtained utilizing 40.7 seconds fluoroscop y time FINDINGS: Left hip total joint arthroplasty appears in satisfactory positioning. No acute fracture or unexpecte d retained opaque foreign body. Expected postsurgical soft tissue swelling and deep tissue air. IMPRESSION: Fluoroscopic assistance as above. Please see operative report for further details. ACT 112: Negative or not required by law. The above report was generated using voice recognition software. It may contain grammatical, syntax o r spelling errors. Electronically signed by: Gianfranco Robles M.D. 07/27/2020 10:40 AM
--- NOTE | 2020-07-27 10:49 | Anesthesiology Progress Note ---
Date of Service July 27, 2020 Anesthesia Post Procedure Vital Signs Vital Signs: Temp Pulse Pulse Resp BP Pulse Ox 07/27/20 10:39 77 16 153/75 H 92 07/27/20 10:00 36.5 C 83 14 134/71 94 07/27/20 09:50 78 14 123/61 94 07/27/20 09:42 36.0 C L 84 14 129/75 94 07/27/20 06:41 36.7 C 65 20 140/68 93 07/27/20 05:49 36.8 C 80 16 118/70 95 Pain Intensity Left Hip: Pain Intensity: 2 Transfer of Care Handoff Completed per policy Notes Mental Status: alert / awake / arousable Patient Amnestic to Procedure: Yes Nausea / Vomiting: adequately controlled Pain: adequately controlled Airway Patency, RR, SpO2: stable & adequate BP & HR: stable & adequate Hydration State: stable & adequate Neuraxial Anesthesia: was administered and sensory block is resolving Anesthetic Complications: no major complications apparent
[2020-07-27] MEDS ORDERED: LIDOCAINE HCL 2% 2 ML VIAL/AMP(20MG/ML) INFIL ONE (11:12)
[2020-07-27] MEDS ORDERED: ePHEDrine sulfate 50 MG/ML SYR ONE (11:22)
[2020-07-27] MEDS: KETOROLAC TROMETHAMINE 15 MG/ML VIAL IV SCH ×3 (12:12→23:40)
[2020-07-27] MEDS: ACETAMINOPHEN 500 MG TAB PO SCH ×2 (13:15→21:47)
[2020-07-27] MEDS: ceFAZolin 2000MG 2,000 MG/15 ML SYR IV SCH ×2 (15:25→23:39)
--- NOTE | 2020-07-27 16:40 | Orthopedic Progress Note ---
Date of Service July 27, 2020 Assessment & Plan (1) Degenerative joint disease of left hip: s/p Left anterior total hip athroplasty -ancef x 24 -DVT ppx: SCDs, TEDs, ASA BID -WBAT LLE -PT/OT -PO XR demonstrates a well aligned well fixed total hip prothesis. -a.m. labs -DC planning Admission and Anticipated Discharge Date Admission Date: July 27, 2020 Subjective Post Operative Progress Note Patient seen sitting up in bed, comfortable, denies complaints, pain well controlled, no acute issues. Review of Systems Review of Systems: All systems reviewed & are unremarkable except as noted in HPI & below Constitutional: as per Subjective / HPI Physical Exam Physical Exam: LLE NVSI +EHL/FHL/TA/GS SILT grossly, +2 DP pulse, compartments soft NT, dressing cdi. Constitutional: WD/WN, vitals as above Results & Data ([place]) Vital Signs (Past 12 Hours) Vital Signs Temp Pulse Pulse Resp BP BP Pulse Ox 07/27/20 16:03 36.5 C 93 H 16 113/74 93 07/27/20 13:14 91 H 16 139/76 94 07/27/20 12:10 85 16 137/67 92 07/27/20 11:14 80 16 147/68 H 97 07/27/20 10:39 77 16 153/75 H 92 07/27/20 10:10 36.7 C 77 16 135/64 95 07/27/20 10:00 36.5 C 83 14 134/71 94 07/27/20 09:50 78 14 123/61 94 07/27/20 09:42 36.0 C L 84 14 129/75 94 07/27/20 06:41 36.7 C 65 20 140/68 93 07/27/20 05:49 36.8 C 80 16 118/70 95
[2020-07-27] MEDS: SENNA 8.6 MG TAB PO SCH (21:47)
[2020-07-27] MEDS: DOCUSATE SODIUM 100 MG CAP PO SCH (21:47)
[2020-07-27] MEDS: ASPIRIN 81 MG ECTAB PO SCH (21:47)
[2020-07-28] MEDS: ACETAMINOPHEN 500 MG TAB PO SCH ×3 (05:48→21:23)
[2020-07-28] MEDS: KETOROLAC TROMETHAMINE 15 MG/ML VIAL IV SCH (05:48)
[2020-07-28] MEDS: LEVOTHYROXINE SODIUM 150 MCG TABLET PO SCH (05:48)
[2020-07-28 07:31] LABS: Hematocrit (blood only) 32.4 % (42-52); Hemoglobin 10.9 g/dL (14.0-18.0); Immature Granulocytes # (auto) 0.02 K/uL (0.00-0.02); Immature Granulocytes % (auto) 0.1 %; Lymphocytes # (auto) 0.84 K/uL (1.2-3.4); Lymphocytes % (auto) 6.3 %; Mean Corpuscular Hemoglobin 28.8 pg (25-34); Mean Corpuscular Hgb Conc 33.6 g/dL (32-36); Mean Corpuscular Volume 85.5 fL (80-100); Mean Platelet Volume 10.2 fL (7.4-10.4); Monocytes # (auto) 0.67 K/uL (0.11-0.59); Neutrophils # (auto) 11.84 K/uL (1.4-6.5); Neutrophils % (auto) 88.6 %; Platelet Count 178 K/uL (130-400); RDW Coefficient of Variation 14.5 % (11.5-14.5); RDW Standard Deviation 44.9 fL (36.4-46.3); Red Blood Count 3.79 M/uL (4.7-6.1); White Blood Count 13.37 K/uL (4.8-10.8)
[2020-07-28 07:48] LABS: BUN Creatinine Ratio 18.3 (10-20); Calcium 8.9 mg/dl (8.5-10.1); Creatinine Clr Calc Pharmacy 35.1 ml/min; Est GFR (African American) 42.6; Est GFR (Non-African American) 36.7; Potassium 4.3 mmol/L (3.5-5.1)
[2020-07-28] MEDS: amLODIPine BESYLATE 5 MG TAB PO SCH (08:34)
[2020-07-28] MEDS: allopurinoL 300 MG TAB PO SCH (08:34)
[2020-07-28] MEDS: MULTIVITAMIN TAB PO SCH (08:34)
[2020-07-28] MEDS: IRBESARTAN 150 MG TAB PO SCH (08:34)
[2020-07-28] MEDS: METOPROLOL TARTRATE 25 MG TAB PO SCH (08:34)
[2020-07-28] MEDS: ATORVASTATIN 40 MG TAB PO SCH (08:34)
[2020-07-28] MEDS: ASPIRIN 81 MG ECTAB PO SCH ×2 (08:34→21:23)
[2020-07-28] MEDS: hydroCHLOROthiazide 25 MG TAB PO SCH (08:34)
[2020-07-28] MEDS: DOCUSATE SODIUM 100 MG CAP PO SCH ×2 (08:35→21:23)
--- NOTE | 2020-07-28 10:21 | Orthopedic Progress Note ---
Date of Service July 28, 2020 Assessment & Plan (1) Degenerative joint disease of left hip: s/p Left anterior total hip athroplasty POD#1 -ancef x 24 -DVT ppx: SCDs, TEDs, ASA BID -WBAT LLE -PT/OT -PO XR demonstrates a well aligned well fixed total hip prothesis. -a.m. labs - as above, hgb 10.9, Cr 1.72, near his baseline 1.62 -DC planning - home with Admission and Anticipated Discharge Date Admission Date: July 27, 2020 Subjective Post Operative Progress Note Patient seen sitting up in bed, comfortable, denies complaints, pain well controlled, no acute issues. Denies F/C/N/V/SOB/CP. Review of Systems Review of Systems: All systems reviewed & are unremarkable except as noted in HPI & below Constitutional: as per Subjective / HPI Physical Exam Physical Exam: LLE NVSI +EHL/FHL/TA/GS SILT grossly, +2 DP pulse, compartments soft NT, dressing cdi. Constitutional: WD/WN, vitals as above Results & Data ([facility]) Vital Signs (Past 12 Hours) Vital Signs Temp Pulse Resp BP BP Pulse Ox 07/28/20 07:55 36.3 C L 84 16 154/69 H 95 07/28/20 03:19 36.3 C L 81 18 155/75 H 95 07/28/20 00:06 36.4 C L 73 16 148/70 H 95 Laboratory Results 07/28/20 07/28/20 Range/Units 06:38 06:38 WBC 13.37 H (4.8-10.8) K/uL RBC 3.79 L (4.7-6.1) M/uL Hgb 10.9 L (14.0-18.0) g/dL Hct 32.4 L (42-52) % MCV 85.5 (80-100) fL MCH 28.8 (25-34) pg MCHC 33.6 (32-36) g/dL RDW Std Deviation 44.9 (36.4-46.3) fL RDW Coeff of Margareth 14.5 (11.5-14.5) % Plt Count 178 (130-400) K/uL MPV 10.2 (7.4-10.4) fL Immature Gran % (Auto) 0.1 % Neut % (Auto) 88.6 % Lymph % (Auto) 6.3 % Christian % (Auto) 5.0 % Eos % (Auto) 0.0 % Baso % (Auto) 0.0 % Neut # (Auto) 11.84 H (1.4-6.5) K/uL Lymph # (Auto) 0.84 L (1.2-3.4) K/uL Christian # (Auto) 0.67 H (0.11-0.59) K/uL Eos # (Auto) 0.00 (0-0.5) K/uL Baso # (Auto) 0.00 (0-0.2) K/uL Immature Gran # (Auto) 0.02 (0.00-0.02) K/uL Sodium 135 L (136-145) mmol/L Potassium 4.3 (3.5-5.1) mmol/L Chloride 104 (98-107) mmol/L Carbon Dioxide 24 (21-32) mmol/L Anion Gap 7.0 (3-11) BUN 31 H (7-18) mg/dl Creatinine 1.72 H (0.6-1.4) mg/dl Est Cr Clr Drug Dosing 35.1 ml/min Est GFR ( Amer) 42.6 Est GFR (Non-Af Amer) 36.7 BUN/Creatinine Ratio 18.3 (10-20) Glucose 148 H (70-99) mg/dl Calcium 8.9 (8.5-10.1) mg/dl
[2020-07-28] MEDS: SENNA 8.6 MG TAB PO SCH (21:23)
[2020-07-28] MEDS: CeleBREX 200 MG CAP PO SCH (21:24)
[2020-07-29 00:20] VITALS: O2SAT 97
[2020-07-29] MEDS: LEVOTHYROXINE SODIUM 150 MCG TABLET PO SCH (06:14)
[2020-07-29] MEDS: ACETAMINOPHEN 500 MG TAB PO SCH (06:14)
[2020-07-29 07:09] LABS: Eosinophils # (auto) 0.01 K/uL (0-0.5); Eosinophils % (auto) 0.1 %; Hematocrit (blood only) 30.1 % (42-52); Hemoglobin 10.1 g/dL (14.0-18.0); Immature Granulocytes # (auto) 0.02 K/uL (0.00-0.02); Immature Granulocytes % (auto) 0.2 %; Lymphocytes # (auto) 0.68 K/uL (1.2-3.4); Lymphocytes % (auto) 7.4 %; Mean Corpuscular Hemoglobin 29.1 pg (25-34); Mean Corpuscular Hgb Conc 33.6 g/dL (32-36); Mean Corpuscular Volume 86.7 fL (80-100); Monocytes # (auto) 1.11 K/uL (0.11-0.59); Neutrophils # (auto) 7.42 K/uL (1.4-6.5); Neutrophils % (auto) 80.3 %; Platelet Count 166 K/uL (130-400); RDW Coefficient of Variation 14.9 % (11.5-14.5); RDW Standard Deviation 46.5 fL (36.4-46.3); Red Blood Count 3.47 M/uL (4.7-6.1); White Blood Count 9.24 K/uL (4.8-10.8)
[2020-07-29 07:38] LABS: BUN Creatinine Ratio 22.2 (10-20); Calcium 8.5 mg/dl (8.5-10.1); Creatinine Clr Calc Pharmacy 37.1 ml/min; Est GFR (African American) 45.4; Est GFR (Non-African American) 39.2; Potassium 4.2 mmol/L (3.5-5.1)
[2020-07-29 08:10] VITALS: BP 131/65; PULSE 88; TEMP 97.5
[2020-07-29] MEDS: MULTIVITAMIN TAB PO SCH (08:57)
[2020-07-29] MEDS: amLODIPine BESYLATE 5 MG TAB PO SCH (08:57)
[2020-07-29] MEDS: IRBESARTAN 150 MG TAB PO SCH (08:57)
[2020-07-29] MEDS: DOCUSATE SODIUM 100 MG CAP PO SCH (08:57)
[2020-07-29] MEDS: ATORVASTATIN 40 MG TAB PO SCH (08:57)
[2020-07-29] MEDS: allopurinoL 300 MG TAB PO SCH (08:57)
[2020-07-29] MEDS: CeleBREX 200 MG CAP PO SCH (08:58)
[2020-07-29] MEDS: hydroCHLOROthiazide 25 MG TAB PO SCH (08:58)
[2020-07-29] MEDS: METOPROLOL TARTRATE 25 MG TAB PO SCH (08:58)
[2020-07-29] MEDS: ASPIRIN 81 MG ECTAB PO SCH (08:58)
--- NOTE | 2020-07-29 14:05 | Orthopedic Progress Note ---
Date of Service July 29, 2020 Assessment & Plan (1) Degenerative joint disease of left hip: s/p Left anterior total hip arthroplasty POD#2 -ancef x 24 -DVT ppx: SCDs, TEDs, ASA BID -WBAT LLE -PT/OT -PO XR demonstrates a well aligned well fixed total hip prothesis. -a.m. labs - as above, hgb 10.1, Cr 1.63, near his baseline 1.62 -Urinary retention, clarke placed with leg bag, patient scheduled to follow up with PCP upon discharged. Seen PCP prior for similar issue after spine surgery. Manages his BPH and urinary retention. -DC planning - home with POD#1 -ancef x 24 -DVT ppx: SCDs, TEDs, ASA BID -WBAT LLE -PT/OT -PO XR demonstrates a well aligned well fixed total hip prothesis. -a.m. labs - as above, hgb 10.9, Cr 1.72, near his baseline 1.62 -DC planning - home with Admission and Anticipated Discharge Date Admission Date: July 27, 2020 Subjective Post Operative Progress Note Patient seen this a.m. at 0745, sitting up in bed, comfortable, denies complaints, pain well controlled, no acute issues. Denies F/C/N/V/SOB/CP. Review of Systems Review of Systems: All systems reviewed & are unremarkable except as noted in HPI & below Constitutional: as per Subjective / HPI Physical Exam Physical Exam: LLE NVSI +EHL/FHL/TA/GS SILT grossly, +2 DP pulse, compartments soft NT, dressing cdi. Results & Data ([facility]) Vital Signs (Past 12 Hours) Vital Signs Temp Pulse Resp BP Pulse Ox 07/29/20 11:56 36.4 C L 88 16 131/65 97 07/29/20 08:10 36.4 C L 88 16 131/65 97 Laboratory Results 07/29/20 07/29/20 Range/Units 06:52 06:52 WBC 9.24 (4.8-10.8) K/uL RBC 3.47 L (4.7-6.1) M/uL Hgb 10.1 L (14.0-18.0) g/dL Hct 30.1 L (42-52) % MCV 86.7 (80-100) fL MCH 29.1 (25-34) pg MCHC 33.6 (32-36) g/dL RDW Std Deviation 46.5 H (36.4-46.3) fL RDW Coeff of Margareth 14.9 H (11.5-14.5) % Plt Count 166 (130-400) K/uL MPV 10.0 (7.4-10.4) fL Immature Gran % (Auto) 0.2 % Neut % (Auto) 80.3 % Lymph % (Auto) 7.4 % [place] % (Auto) 12.0 % Eos % (Auto) 0.1 % Baso % (Auto) 0.0 % Neut # (Auto) 7.42 H (1.4-6.5) K/uL Lymph # (Auto) 0.68 L (1.2-3.4) K/uL [place] # (Auto) 1.11 H (0.11-0.59) K/uL Eos # (Auto) 0.01 (0-0.5) K/uL Baso # (Auto) 0.00 (0-0.2) K/uL Immature Gran # (Auto) 0.02 (0.00-0.02) K/uL Sodium 137 (136-145) mmol/L Potassium 4.2 (3.5-5.1) mmol/L Chloride 106 (98-107) mmol/L Carbon Dioxide 27 (21-32) mmol/L Anion Gap 4.0 (3-11) BUN 36 H (7-18) mg/dl Creatinine 1.63 H (0.6-1.4) mg/dl Est Cr Clr Drug Dosing 37.1 ml/min Est GFR ( Amer) 45.4 Est GFR (Non-Af Amer) 39.2 BUN/Creatinine Ratio 22.2 H (10-20) Glucose 128 H (70-99) mg/dl Calcium 8.5 (8.5-10.1) mg/dl
--- NOTE | 2020-07-29 23:44 | Discharge Summary ---
Date of Service July 29, 2020 Admission HPI Per Admitting Provider The patient is a 80 year old male who presents with complaints of severe left hip pain and DJD. The patient has failed outpatient conservative treatments to this point which included NSAIDs, IA corticosteroid injection, home exercise/walking program. The patient's pain and limited function have progressed to the point where they severely hinder their activities of daily living and they no longer tolerate exercise programs. They are requesting to proceed with total hip replacement surgery. Principal Diagnosis Left anterior total hip replacement -Left hip DJD Discharge Exam LLE NVSI +EHL/FHL/TA/GS SILT grossly, +2 DP pulse, compartments soft NT, dressing cdi. Constitutional WD/WN, vitals as above Discharge Data Allergies Allergy/AdvReac Type Severity Reaction Status Date / Time rosuvastatin Allergy Mild MUSCLE Verified 07/27/20 05:44 ACHES simvastatin AdvReac Mild MUSCLE Verified 07/27/20 05:44 ACHES Consultations 07/28/20 08:00 Consult Case Management - Discharge Planning Routine Procedures Performed Operation Date: 07/27/20 07:15 Actual Procedures p Left Total Hip Arthroplasty Anterior, Uncemented(Left) - Frantz Gunter DO Ordered Studies 07/27/20 07:15 FL fluoroscopy <1hr Routine FL hip LT 1V Routine Hospital Course (1) Degenerative joint disease of left hip: The patient is a 80 -year-old male who presents with 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 The patient's symptoms have progressed to the point where it has been difficult to perform even normal activities of daily living. I indicated the patient for a left anterior total hip arthroplasty, the risks, benefits and complications of the procedure include but not limited to infection, bleeding, damage to bone, nerves, vessels, surrounding soft tissue, may develop blood clots, loss of function, leg length discrepancy, dislocation, failure of the components, loosening of the components, the need for additional surgery and . The patient wished to proceed with surgery at this time and informed consent was obtained. Hospital Course: On 07/27/20 the patient was taken to the operating room, adequate anesthesia administered and underwent a left anterior total hip arthroplasty. The patient tolerated the procedure well and was taken to the PACU in stable condition. Post-operatively the patient was started on a DVT ppx medication and given appropriate IV antibiotics. Consults were placed to physical therapy, occupational therapy and case management. On POD#1, the patient did well overnight and their pain was well controlled. Labs were drawn and the Hgb was 10.9, Cr 1.72, near baseline, preoperative labs Cr 1.62. The patient progressed well with PT. The patient developed urinary retention and the patient was straight cathted and Clarke left in place with leg bag On POD#2, the patient did well overnight, continued to progress with PT. Labs drawn, Hgb 10.1, Cr, 1.63. Patient continued to do well with PT. Patient scheduled follow up appointment upon discharge with PCP to follow up for urinary retention, his PCP treats and follows his BPH and prior urinary retention issues from previous surgeries, will defer to PCP for urology consultation at this time. Dressings were changed at this time and the incision was clean, dry and intact. The patients hospital stay was relatively uneventful and they were deemed stable by the orthopedic team and consultants to be discharged home with on 07/29/20. Discharge Instructions: Upon discharge the patient may weight bear as tolerates through their operative extremity. They were instructed to keep the incision clean and dry at all times. The patient may shower but should not submerge the incision, avoid bathing, pools and hot tubs. The patient was given a script for pain medication and should take as instructed. The patient was given a script for DVT ppx 81mg ASA BID and should take as directed. The patient was instructed to not drive or travel for long distances until cleared to do so. If the patient develops any symptoms of fevers, chills, nausea, vomiting, increased redness, swelling, pain or drainage from the surgical site, they should notify the office and/or proceed to the nearest emergency room. The patient should follow up in 10-14 days after surgery for their routine post-operative follow-up appointment and should call the office, to confirm the date and time. Please follow up with your PCP upon discharge for removal of Clarke and further treatment of urinary retention. s/p Left anterior total hip arthroplasty POD#2 -ancef x 24 -DVT ppx: SCDs, TEDs, ASA BID -WBAT LLE -PT/OT -PO XR demonstrates a well aligned well fixed total hip prothesis. -a.m. labs - as above, hgb 10.1, Cr 1.63, near his baseline 1.62 -Urinary retention, clarke placed with leg bag, patient scheduled to follow up with PCP upon discharged. Seen PCP prior for similar issue after spine surgery. Manages his BPH and urinary retention. -DC planning - home with POD#1 -ancef x 24 -DVT ppx: SCDs, TEDs, ASA BID -WBAT LLE -PT/OT -PO XR demonstrates a well aligned well fixed total hip prothesis. -a.m. labs - as above, hgb 10.9, Cr 1.72, near his baseline 1.62 -DC planning - home with Total Time Total Time Spent Total Time Spent (In Minutes): 60 Discharge Plan Discharge Items Patient Disposition: Home - Home Health Services Reason For Visit: post surgical care Discharge Diagnosis: Left anterior total hip replacement -Left hip DJD/AVN Condition on Discharge: Good Activity: Per Instructions section Lifting: Wait until after follow-up appointment Bathing: Keep incision dry Bathing Comment: No bathing, pools or hot tubs. Sexual Activity: Wait until after follow-up appointment Exercise/Sports: Wait until after follow-up appointment Driving/Machine Use: No driving. Weightbearing: Full weightbearing Non-emergency contact: Primary Care Provider and Surgeon Call non-emergency contact if: you have any medication questions, your symptoms worsen, your pain is not controlled, your pain is worsening, your pain is unusual for you, your pain is concerning for you, you have a fever, your temperature is above 101, your wound has increased redness, your wound has i ncreased drainage and your wound pain has increased Follow-up/Referrals: Jignesh Arevalo MD [Primary Care Provider] - (Office will call patient with appointment time for Sunday08/02/20) Diet: Regular Addtl Attending Provider Instructions: ACTIVITY RECOMMENDATIONS: SELF CARE INSTRUCTIONS AFTER TOTAL HIP REPLACEMENT : Direct Anterior Approach Until the incision and soft tissues around your hip have healed, there is a possibility that the hip prosthesis could dislocate. A. Hip flexion ( Up & Down out of chair or steps ) may be difficult. This is normal. B. Numbness in front of the thigh is also normal for a few weeks. C. Use hand rails when walking on stairs. D. Wear low heeled shoes with non-slip soles. E. Be sure that your floors are free of things that could trip you - throw rugs, electrical cords, small objects. Avoid wet and waxed floors, especially with crutches and canes. F. Try to walk several times a day with rest periods between. G. Continue with all the exercises taught to you in the hospital. Again, make walking a part of your daily routine. SPECIAL CARE INSTRUCTIONS: VERY IMPORTANT TO READ AND REVIEW A. You may still be at risk for phlebitis and blood clots. 1. Wear surgical stockings (SHAYLA hose) for 2 weeks after surgery to improve circulation and reduce swelling. 2. Take Aspirin 81mg twice daily for 4 weeks or as directed by your doctor. This is your blood thinner. 3. High risk patients may be prescribed a stronger blood thinner if necessary. 4. If you are on Coumadin normally, your family doctor/[employer] teacher should monitor your blood work. Expect a phone call the day of or the day after bloodwork is drawn to adjust your dosage. B. You must take antibiotics before having dental work, bladder, bowel and other surgery. Your doctor will provide you with a permanent card to carry describing precautions. C. Call [facility] if you have a fever, redness or swelling around the incision, cloudy drainage from incision, or sudden increase in pain in your hip, not relieved by your regular pain medication. D. Please call the office at if you have any concerns or questions about your operation or recovery. * YOU MAY SHOWER, NO TUB BATHS UNTIL CLEARED BY YOUR DOCTOR. - Keep an extra close eye on the top portion of your incision. Be sure to keep clean & dry. * WEAR SHAYLA HOSE 20 HOURS PER DAY FOR 2 WEEKS. * YOU MAY PROGRESS FROM A WALKER, TO A CANE, TO INDEPENDENT AT YOUR OWN PACE. * MOST PATIENTS WILL HAVE HOME NURSING FOR THERAPY. IF YOU DECIDE TO DO OUTPATIENT PHYSICAL THERAPY, PLEASE SCHEDULE THIS 3 TIMES PER WEEK. * DERMABOND Prineo- This is a mesh tape dressing that is covered with glue. It should remain in place until the incision is properly healed, usually 10-14 days. This dressing is designed to naturally slough off. You may trim the excess mesh tape as it peels off. Incision may be briefly wet in a shower. Dry immediately by blotting with a clean, dry towel. Do not bath or swim until instructed by your doctor. Do not scratch, rub, or pick at the dressing. Do not apply any topical ointments or lotions until dressing is completely removed and/or instructed by your doctor. There may be a small piece of suture material at one end of your incision. Do not pull or trim this. If it is bothersome or catching on clothing, you may cover it with a band-aid. FOLLOW UP VISIT: If appointment is not already scheduled: Please call [facility] to make a follow-up appointment for 2 weeks after your surgery at . Pending Studies at Discharge: No Stand-Alone Forms: [facility] [employer], Opioid Pain Management, Smoking Cessation Medications and DC Order Prescriptions: New acetaminophen 500 mg Tablet 1,000 mg PO Q8 PRN (Reason: fever or pain) Qty: 90 RF: 0 aspirin 81 mg Tablet,Delayed Release (Dr/Ec) 81 mg PO BID Qty: 56 RF: 0 celecoxib [Celebrex] 200 mg Capsule 200 mg PO BID PRN (Reason: pain/fevers) Qty: 28 RF: 0 oxycodone 5 mg Tablet 5 mg PO Q6H MDD 4 PRN (Reason: pain) Qty: 30 RF: 0 sennosides [Senokot] 8.6 mg Tablet 17.2 mg PO HS PRN (Reason: constipation) Qty: 28 RF: 0 Continued atorvastatin 40 mg Tablet 40 mg PO QAM RF: 0 irbesartan-hydrochlorothiazide 150-12.5 mg Tablet 1 tab PO QAM RF: 0 amlodipine 5 mg Tablet 5 mg PO QAM RF: 0 levothyroxine 150 mcg Tablet 150 mcg PO QAM RF: 0 allopurinol 300 mg Tablet 300 mg PO QAM RF: 0 metoprolol tartrate 25 mg Tablet 25 mg PO QAM RF: 0 Discontinued meloxicam 15 mg Tablet 15 mg PO QAM RF: 0 aspirin [Aspir-81] 81 mg Tablet,Delayed Release (Dr/Ec) 81 mg PO QAM RF: 0 acetaminophen [Tylenol Extra Strength] 500 mg Capsule 1,000 mg PO Q6H PRN (Reason: Pain) RF: 0 oxycodone-acetaminophen [Percocet] 5-325 mg Tablet 1 tab PO Q6H PRN (Reason: Pain) RF: 0 Discharge Orders: Discharge Order (Routine); Ordered 07/29/20 Ordered By: Sammy Fajardo/Other Patient Handouts: DVT Post Op Prevention, A1C Admission Data Admit Date/Time: 07/27/20 14:54 Attending Provider: Frantz Gunter Admit Provider: Frantz Gunter Primary Care Provider: Jignesh Arevalo Other Providers: [facility],Home Health Other Interventions: Discharge Summary Assessment (RN) Last Done: 07/29/20 11:56
== END 2020-07-29 13:40 | disposition home health service (06) | DRG 470 ==
LOC: 3E 05:10 → ASU 05:10
DX: E78.5 Hyperlipidemia, unspecified; Z79.82 Long term (current) use of aspirin; Z95.1 Presence of aortocoronary bypass graft; Z96.652 Presence of left artificial knee joint; E03.9 Hypothyroidism, unspecified; Z88.8 Allergy status to other drugs, medicaments and biological substances; I10 Essential (primary) hypertension; Z79.890 Hormone replacement therapy; Z79.899 Other long term (current) drug therapy; M16.12 Unilateral primary osteoarthritis, left hip; R33.8 Other retention of urine; I25.10 Atherosclerotic heart disease of native coronary artery without angina pectoris; M87.052 Idiopathic aseptic necrosis of left femur; Z79.1 Long term (current) use of non-steroidal anti-inflammatories (NSAID); Z95.5 Presence of coronary angioplasty implant and graft; N40.1 Benign prostatic hyperplasia with lower urinary tract symptoms